=== PATIENT | female | born 1980 | race Caucasian/White ===

== ENCOUNTER 2017-06-18 22:57 | Emergency (ER) | payer OTHER ==
[~2017-06-18] VITALS: Ht 160 cm; Wt 78.1 kg
[2017-06-19] MEDS ORDERED: TRAMADOL HCL 50 MG TABLET PO ONE (01:30)
[2017-06-19] MEDS ORDERED: ONDANSETRON 4 MG TAB.RAPDIS PO ONE (01:30)
--- NOTE | 2017-06-19 01:30 | NUR ---
XRAY TAKEN AT THE BEDSIDE.
[2017-06-19] MEDS ORDERED: ONDANSETRON 4 MG TAB.RAPDIS ONE (01:33)
[2017-06-19] MEDS ORDERED: TRAMADOL HCL 50 MG TABLET ONE (01:33)
--- NOTE | 2017-06-19 02:17 | NUR ---
Patient discharged to home in stable condition. Written and verbal after care instructions given. Patient verbalizes understanding of instruction AND RX. PT AMBULATED OUT WITH A STEADY GIAT. VSS. PT'S BOYFRIEND IS DRIVING PT HOME.
[2017-06-19 02:26] VITALS: BP 129/84
== END 2017-06-19 02:17 | disposition home or self-care (01) ==
LOC: ER 22:57
DX: M25.531 Pain in right wrist (principal); W22.8XXA Striking against or struck by other objects, initial encounter; Y93.89 Activity, other specified; Y92.89 Other specified places as the place of occurrence of the external cause; Y99.8 Other external cause status
CPT/HCPCS: 29125; 73110; 73130; 99283; A4606; Q0162; Z7610

== ENCOUNTER 2020-04-22 15:17 | Emergency (ER) | payer OTHER ==
[~2020-04-22] VITALS: Ht 160 cm; Wt 79.4 kg
--- NOTE | 2020-04-22 15:30 | NUR ---
From home, with c/o right flank pain, not relieved from Motrin, placed to bed 11. S/E by [facility].
[2020-04-22 16:09] LABS: BASOPHILS % (AUTO) 0.5 % (0.0-2.0); EOSINOPHILS % (AUTO) 1.5 % (0.0-6.0); HEMATOCRIT 40 % (33-45); HEMOGLOBIN 13.2 g/dL (11.5-14.8); LYMPHOCYTES # (AUTO) 1.8 /CMM (0.8-4.8); LYMPHOCYTES % (AUTO) 21.3 % (20.0-44.0); MEAN CORPUSCULAR HGB CONC 33 g/dl (31.0-36.0); MEAN CORPUSCULAR VOLUME 90 fL (82-100); MONOCYTES # (AUTO) 0.4 /CMM (0.1-1.30); MONOCYTES % (AUTO) 4.5 % (2.0-12.0); NEUTROPHILS # (AUTO) 6.1 /CMM (1.8-8.9); NEUTROPHILS % (AUTO) 72.2 % (43.0-81.0); PLATELET COUNT (AUTO) 324 /CMM (150-450); RED BLOOD CELL COUNT(AUTO) 4.46 MIL/uL (4.0-5.2); WHITE BLOOD COUNT (AUTO) 8.4 K/uL (4.3-11.0)
[2020-04-22 16:12] LABS: APPEARANCE,URINE CLEAR (CLEAR); BILIRUBIN,URINE NEGATIVE (NEGATIVE); BLOOD, URINE LARGE Ery/uL (NEGATIVE); COLOR,URINE YELLOW (YELLOW); KETONES,URINE NEGATIVE (NEGATIVE); LEUKOCYTE ESTERASE ,URINE NEGATIVE (NEGATIVE); NITRITE, URINE NEGATIVE (NEGATIVE); PROTEIN,URINE TRACE mg/dl (NEGATIVE); UGLUCOSE NEGATIVE (NEGATIVE); UROBILINOGEN,URINE 0.2 EU/dL (0.2)
[2020-04-22 16:18] LABS: BACTERIA,URINE Few /HPF (None Seen); RBC,URINE 21-50 /HPF (0-2); WBC,URINE 0-2 /HPF (0-3)
[2020-04-22 16:19] LABS: SQUAMOUS EPITHELIAL CELL,UR Few /HPF (None Seen)
[2020-04-22 16:23] LABS: CALCIUM, SERUM 8.7 mg/dL (8.5-10.1); CREATININE 0.9 mg/dL (0.6-1.3); POTASSIUM 3.9 mmol/L (3.5-5.1)
--- NOTE | 2020-04-22 16:25 | NUR ---
No any significant changes. Stable, Right flank pain is improving.
[2020-04-22 16:30] LABS: ALBUMIN 3.6 g/dL (3.4-5.0); BILIRUBIN,TOTAL 0.1 mg/dL (0.2-1.0); TOTAL PROTEIN, SERUM 7.4 g/dL (6.4-8.2)
--- NOTE | 2020-04-22 17:24 | NUR ---
Verbalized right flank pain is tolerable now.
--- NOTE | 2020-04-22 17:51 | NUR ---
Patient a/ox4, breathing even and unlabored, denies pain at this time. IV removed. Catheter intact and site benign. Pressure and 4x4 applied to site. No bleeding noted.Patient discharged to home in stable condition. Written and verbal after care instructions given. Patient verbalizes understanding of instruction.
[2020-04-22 17:52] VITALS: BP 130/94
== END 2020-04-22 17:53 | disposition home or self-care (01) ==
LOC: ER 15:24
DX: N23 Unspecified renal colic (principal); R31.9 Hematuria, unspecified; L30.9 Dermatitis, unspecified
CPT/HCPCS: 36415; 74021; 80048-TC; 80076-TC; 81000-TC; 83690-TC; 84703-TC; 85025-TC